=== PATIENT | male | born 1985 | race African-American/Black ===

== ENCOUNTER → 2018-06-30 19:51 | Outpatient (CLI) | payer OTHER, SELFPAY ==
--- NOTE | 2018-06-30 19:57 | DI.MRI.S_ITS ---
PROCEDURE: MR KNEE LT WO CON INDICATIONS: PAIN IN LEFT KNEE TECHNIQUE: Noncontrast sagittal PD fast spin echo and T2 fast spin echo with fat saturation, sagittal 3-D FLASH with fat saturation; coronal T1 spin echo and PD fast spin echo with fat saturation, and axial PD fast spin echo with fat saturation through the knee. COMPARISON: None. FINDINGS: Image quality: Excellent. Menisci: The medial and lateral menisci demonstrate normal morphology and internal signal. The meniscal root ligaments appear intact. Cruciate ligaments: The anterior and posterior cruciate ligaments appear intact. Medial structures: The medial collateral ligament appears intact. The posterior oblique ligament, semimembranosus tendon insertions, oblique popliteal ligament, and meniscocapsular junction appear intact. Visualized portions of the pes anserinus tendons appear normal. No abnormal bursal fluid. Lateral structures: The lateral collateral ligament, long and short heads of the biceps femoris tendon appear intact. The popliteus tendon appears normal; the popliteofibular ligament appears intact. The posterosuperior and anteroinferior popliteomeniscal fascicles appear intact. The arcuate and fabellofibular ligaments appear intact, on either side of the lateral inferior geniculate artery. Iliotibial band appears normal. Anterior structures: The quadriceps and patellar tendons appear intact. Patellar alignment is normal. No femoral trochlear dysplasia or ventral trochlear prominence. There is mild edema in the infrapatellar fat pad and mild reactive marrow signal change in the inferior aspect of patella, suggesting of Hoffa pad impingement. Bones and cartilage: No bone marrow contusions or fractures. The cartilage of the medial and lateral femorotibial compartments, as well as the patellofemoral compartment, appears normal in thickness. Joint space: There is a small knee joint effusion. A small nonruptured Rubin's cyst. Normal appearing synovial plicae are incidentally noted. IMPRESSION: 1. Mild edema in the infrapatellar fat pad with associated reactive marrow signal change in the inferior aspect of patella, suggesting of Hoffa pad impingement. 2. Small degree fusion. 3. Small Rubin's cyst. Dictated by: Florencio Bah M.D. on 07/01/2018 at 9:10 Approved by: Florencio Bah M.D. on 07/01/2018 at 10:23
== END ==
PROVIDERS: Visit Provider Physician Assistant
DX: M25.562 Pain in left knee (principal); M25.462 Effusion, left knee; M71.22 Synovial cyst of popliteal space [Baker], left knee
CPT/HCPCS: 73721

== ENCOUNTER → 2022-02-20 16:32 | Outpatient (CLI) | payer OTHER, SELFPAY ==
--- NOTE | 2022-02-20 | DI.MRI.S_ITS ---
PROCEDURE: MR KNEE LT WO CON INDICATIONS: Lt. knee pain TECHNIQUE: Noncontrast sagittal PD fast spin echo and T2 fast spin echo with fat saturation, sagittal 3-D FLASH with fat saturation; coronal T1 spin echo and PD fast spin echo with fat saturation, and axial PD fast spin echo with fat saturation through the knee. COMPARISON: [facility], MR, MR KNEE LEFT WITHOUT CONTRAST, 09/14/2020, 10:30. [facility], CR, XR KNEE 4+ VIEWS LEFT, 12/06/2021, 16:08. [facility], MR, MR KNEE LT WO CON, 06/30/2018, 20:26. FINDINGS: Image quality: Excellent. Menisci: There is linear oblique high T2 signal intensity traversing the medial meniscal body and posterior horn, demonstrating inferior articular surface extension, involving the peripheral 3rd, indicating oblique tearing. Lateral meniscus is intact. Cruciate ligaments: The anterior and posterior cruciate ligaments appear intact. Medial structures: The medial collateral ligament appears intact. Visualized portions of the pes anserinus tendons appear normal. No abnormal bursal fluid. Lateral structures: The lateral collateral ligament, long and short heads of the biceps femoris tendon appear intact. The popliteus tendon appears normal. Iliotibial band appears normal. Anterior structures: The quadriceps and patellar tendons appear intact. There is lateral patellar subluxation. There is mild lateral ventral trochlear prominence. There is mild edema within the superolateral aspect of the infrapatellar fat pad. Bones and cartilage: No bone marrow contusions or fractures. There is moderate articular cartilage loss involving the lateral patellar facet inferiorly. Joint space: There is a small knee joint effusion and a small Rubin's cyst. Normal appearing synovial plicae are incidentally noted. IMPRESSION: 1. Medial meniscal tearing. 2. Findings consistent with lateral patellofemoral friction syndrome in the appropriate clinical setting. There is associated lateral ventral trochlear prominence and lateral patellofemoral compartment articular cartilage loss. 3. Small knee joint effusion and Rubin's cyst. Dictated by: Yusuf Zelaya M.D. on 02/21/2022 at 8:59 Approved by: Yusuf Zelaya M.D. on 02/21/2022 at 9:02
== END ==
PROVIDERS: Referring Provider Orthopaedic Surgery; Visit Provider Orthopaedic Surgery
DX: S76.319A Strain of muscle, fascia and tendon of the posterior muscle group at thigh level, unspecified thigh, initial encounter (principal); S83.222A Peripheral tear of medial meniscus, current injury, left knee, initial encounter; M25.461 Effusion, right knee; M71.21 Synovial cyst of popliteal space [Baker], right knee; X58.XXXA Exposure to other specified factors, initial encounter
CPT/HCPCS: 73721